=== PATIENT | male | born 1985 | race Caucasian/White ===

== ENCOUNTER 2018-09-04 11:14 | Emergency (ER) | payer MEDICAID, MEDICARE ==
--- NOTE | 2018-09-04 13:57 | UC ---
Back Pain HPI - HPI Summary HPI Summary: 32 y/o male with h/o b/l hip deformities at (bone deformities "hips are squares put into hip sockets"). States around 6 months ago after lifting heavy gas cans had lower back pains, x-rays showed DJD, treated by chiropractor , feeling well. states last night while moving in chair had sharp shooting pain in mid lower back with "pins and needles" intermittently into upper thighs and hips. pins and needles resolved in thighs but noted to have severe pain in spine this AM upon wakening, has improved. - History of Current Complaint Chief Complaint: UCBackPain Stated Complaint: BACK PAIN Time Seen by Provider: 09/04/18 13:37 Hx Obtained From: Patient, Family/Package Line Relief Operator - grandmother Onset/Duration: Sudden Onset, Lasting Days Timing: Constant Severity Initially: Severe Severity Currently: Severe Pain Intensity: 9 Pain Scale Used: 0-10 Numeric Back Pain: Is Discrete @ - midline lower back Aggravating Factor(s): Movement, Lifting Alleviating Factor(s): Rest - Allergies/Home Medications Allergies/Adverse Reactions: Allergies Allergy/AdvReac Type Severity Reaction Status Date / Time No Known Allergies Allergy Verified 09/04/18 12:35 PMH/Surg Hx/FS Hx/Imm Hx Previously Healthy: Yes - DJD, congenital deformity b/l hips - Surgical History Surgical History: Yes Surgery Procedure, Year, and Place: appy - Social History Alcohol Use: None Substance Use Type: None Smoking Status (MU): Former Smoker When Did the Patient Quit Smoking/Using Tobacco: 2016 Review of Systems All Other Systems Reviewed And Are Negative: Yes Musculoskeletal: Positive: Arthralgia, Decreased ROM, Edema, Myalgia Is Patient Immunocompromised?: No Physical Exam Triage Information Reviewed: Yes Appearance: Well-Appearing, Well-Nourished, Pain Distress - moderate Vital Signs: Initial Vital Signs Temp 97.9 F 09/04/18 12:36 Pulse 81 09/04/18 12:36 Resp 16 09/04/18 12:36 BP 136/70 09/04/18 12:36 Pulse Ox 99 09/04/18 12:36 Vital Signs Reviewed: Yes Eyes: Positive: Conjunctiva Clear Musculoskeletal: Positive: Strength Intact, ROM Limited @ - FF at waist, Other: - TTP over L2-L4 area midline spine, mild paraspinal tenderness, no SI joint tenderness, FF at waist 20 degrees with pain, extension full, side to side intact with only mild pain. FF b/l knes to 90 without difficutly, able to heel , toe raise without difficulty, ambulatory without difficulty per patient, at baseline. Neurological: Positive: Alert, Muscle Tone Normal, Other: - patellaer reflexes 2 + b/l, SITLT distal to knees b/l Psychological Exam: Normal Skin Exam: Normal Back Pain Course/Dx - Course Course Of Treatment: X-ray- AVN b/l hips, known condition, f/u with Ortho, DJD back, no fractures noted. prednisone x 3 days, follow up with ortho - Differential Dx/Diagnosis Differential Diagnosis/HQI/PQRI: Strain, Sprain Provider Diagnosis: Back spasm Discharge - Sign-Out/Discharge Documenting (check all that apply): Patient Departure All imaging exams completed and their final reports reviewed: Yes - Discharge Plan Condition: Fair Disposition: HOME Prescriptions: Naproxen [Naproxen 250 mg tab] 250 mg PO BID PRN #60 tablet PRN Reason: Pain predniSONE [Prednisone 20 MG TAB] 20 mg PO DAILY #4 tablet Patient Education Materials: Low Back Strain (ED), Lower Back Exercises (ED), Thoracic Back Strain (ED), Core Strengthening Exercises (ED) Referrals: No Primary Care Phys,NOPCP [Primary Care Provider] - Chacorta Amaya MD [Medical Doctor] - Additional Instructions: - Exercises as shown - Prednisone to decrease swelling, spasm, pain. - take for 3 days, then stop - Naproxen- start after stopped prednisone, continue for 3-4 days afterwards. - GO to ER with numbness, tingling, loss of bowel or bladder function, decreased strength - FOllow up with orthopedics within 5-7 days for re-eval and treatment of hips. - Billing Disposition and Condition Condition: FAIR Disposition: Home
== END 2018-09-04 15:10 | disposition home or self-care (01) ==
LOC: UCCORT 11:14
DX: M62.830 Muscle spasm of back (principal); Q65.89 Other specified congenital deformities of hip; Z87.891 Personal history of nicotine dependence
CPT/HCPCS: 72110; 73523; 99202; G0463